=== PATIENT | male | born 1995 | race Caucasian/White ===

== ENCOUNTER → 2018-10-17 | Outpatient (CLI) | payer BC ==
--- NOTE | 2018-10-17 14:28 | Diagnostic Imaging Report ---
EXAMINATION: Scrotal ultrasound CLINICAL INDICATION: Left testicular pain. COMPARISON: None. TECHNIQUE: Grayscale and color Doppler evaluation of the scrotum was performed in transverse and longitudinal planes. FINDINGS: The right testicle measures 4.9 x 2.3 x 3.4 cm. There are no masses or calcifications.. The right epididymis measures 1.1 x 0.9 x 0.9 cm. No nodules or masses.. There is no evidence of right hydrocele or varicocele. There is normal flow to the right testicle, without evidence of torsion. The left testicle measures 5.1 x 2.5 x 3.5 cm. There are no masses or calcifications.. The left epididymis measures 1.1 x 1.2 x 0.9 cm. No nodules or masses.. Small left varicocele is noted. No left hydrocele. There is normal flow to the left testicle without evidence of torsion. The scrotum has a normal appearance, without focal lesions. Impression: Small left varicocele. Unremarkable sonographic appearance of the testes. Signed by: Dr. Carter Covarrubias M.D. on 10/17/2018 2:25 PM
== END ==
LOC: US 13:14
PROVIDERS: ATTEND Internal Medicine
DX: N50.812 Left testicular pain (principal); I86.1 Scrotal varices
CPT/HCPCS: 76870; 93976